=== PATIENT | male | born 2000 | race Caucasian/White ===

== ENCOUNTER 2025-04-15 23:22 | Emergency (ER) | payer BC ==
[2025-04-15 23:28] VITALS: BP 121/97; PULSE 93; RESP 20; TEMP 98.6
[2025-04-16] MEDS ORDERED: MORPHINE SULFATE 2 MG/ML SYRINGE ONE (00:46)
[2025-04-16] MEDS: morphine CARPU-JECT 2 MG/1 ML DISP.SYRIN IVPUSH ONE (01:02)
[2025-04-16 01:23] LABS: ABSOLUTE IMMATURE GRANULOCYTES 0.05 x10^3/uL (0.0-0.031)
[2025-04-16 01:24] LABS: BASOPHILS # 0.05 x10^3/uL (0.01-0.08); EOSINOPHIL % 0.4 % (0.8-7.0); EOSINOPHILS # 0.03 x10^3/uL (0.04-0.54); HEMATOCRIT 44.2 % (40.1-51.0); MCHC 33.9 g/dl (32.3-36.5); MEAN CELL VOLUME 89.5 fl (79.0-92.2); MEAN PLT VOLUME 12.3 fl (9.4-12.4); MONOCYTE # 1.66 x10^3/uL (0.30-0.82); MONOCYTE % 21.3 % (5.3-12.2); PLATELET COUNT 260 x10^3/uL (163-337); RDW 11.8 % (11.9-15.3)
[2025-04-16] MEDS: ACETAMINOPHEN 1000 MG/100 ML BAG IVPB ONE (01:29)
[2025-04-16] MEDS: SODIUM CHLORIDE 0.9% 500 ML INFUS.BAG IV ONE (01:29)
[2025-04-16 01:40] LABS: INR 1.06 (0.83-1.09); PROTHROMBIN TIME (PATIENT) 11.6 SEC (9.7-13.0)
[2025-04-16 01:43] LABS: ACTIVATED PTT 30.5 SECONDS (25.2-36.5)
[2025-04-16 01:44] LABS: POTASSIUM 3.9 mmol/L (3.5-5.1)
[2025-04-16 01:46] LABS: CALCIUM 9.6 mg/dL (8.5-10.1)
[2025-04-16 01:47] LABS: ALBUMIN 3.7 g/dl (3.4-5.0); BLOOD UREA NITROGEN 8.3 mg/dL (7-18)
[2025-04-16 01:50] LABS: CREATININE 0.9 mg/dL (0.55-1.3)
[2025-04-16 01:51] LABS: TOT PROT 7.4 g/dl (6.4-8.2)
[2025-04-16 01:52] LABS: BILIRUBIN,TOTAL 0.2 mg/dL (0.2-1)
[2025-04-16] MEDS ORDERED: KETOROLAC TROMETHAMINE 15 MG/ML VIAL ONE (06:06)
[2025-04-16] MEDS: KETOROLAC TROMETHAMINE 15 MG/ML VIAL IVPUSH ONE (06:11)
[2025-04-16] MEDS: AMOX TR/POT CLAV 875MG/125MG TABLETS (FP) PO ONE (06:11)
== END 2025-04-16 06:43 | disposition home or self-care (01) ==
LOC: JER 23:22
PROC: 3E0333Z Introduction of Anti-inflammatory into Peripheral Vein, Percutaneous Approach (ICD-10-PCS; principal; 2025-04-15)
PROC: 3E033NZ Introduction of Analgesics, Hypnotics, Sedatives into Peripheral Vein, Percutaneous Approach (ICD-10-PCS; 2025-04-15)
DX: K62.5 Hemorrhage of anus and rectum (principal); R10.11 Right upper quadrant pain; R10.13 Epigastric pain; R10.31 Right lower quadrant pain; R10.32 Left lower quadrant pain; R10.33 Periumbilical pain; R11.0 Nausea; R50.9 Fever, unspecified
CPT/HCPCS: 36415; 74177-TC; 76705-TC; 80053; 83690; 85025; 85610; 85730; 86850; 86900; 86901; 99285-25